=== PATIENT | male | born 1975 | race American Indian/Alaskan Native ===

== ENCOUNTER 2021-05-13 10:56 | Emergency (ER) | payer SELFPAY ==
[2021-05-13] MEDS ORDERED: NITROGLYCERIN 2% OINT 1 GM TP ONE (12:00)
[2021-05-13] MEDS ORDERED: ASPIRIN 325 MG TAB PO ONE (12:00)
[2021-05-13] MEDS ORDERED: ONDANSETRON 4 MG/2 ML INJ IV ONE (12:32)
[2021-05-13] MEDS ORDERED: fentaNYL 100 MCG/2 ML INJ IV ONE (12:32)
--- NOTE | 2021-05-13 12:37 | Emergency Department Report ---
HPI - General Chief Complaint: Chest Pain Time Seen by Provider: 05/13/21 11:58 - HPI HPI: Room 1 The patient is a 46-year-old male present with a chief complaint of chest pain. The patient states he was at work when he suddenly developed substernal chest pain feeling as though there was needles in his chest and he had pain with breathing. Patient states his chest pain has been constant and associated with shortness of breath and diaphoresis. Patient denies nausea/vomiting, fever or cough. Patient states she was not vaccinated against Covid. Patient currently gives this chest pain score 4-5/10. Patient states he is never had a stress test or cardiac catheterization ED Past Medical Hx - Past Medical History Previous Medical History?: No - Surgical History Past Surgical History?: No Additional Surgical History: Eye surgery, left shoulder - Family History Family history: no significant - Social History Smoking Status: Current Some Day Smoker Substance Use Type: None (Denies illicit drug use), Alcohol (Occasional) ED Review of Systems ROS: Stated complaint: CHEST PAIN Other details as noted in HPI Constitutional: diaphoresis. denies: fever Eyes: denies: eye pain ENT: denies: throat pain Respiratory: shortness of breath. denies: cough Cardiovascular: chest pain Endocrine: no symptoms reported Gastrointestinal: denies: nausea, vomiting Genitourinary: denies: dysuria Musculoskeletal: denies: back pain Neurological: denies: headache Physical Exam - Physical Exam Vital Signs: Vital Signs 05/13/21 05/13/21 10:30 11:10 Temperature 98.5 F Pulse Rate 61 Respiratory 16 Rate Blood Pressure 137/81 [Left] O2 Sat by Pulse 100 100 Oximetry Physical Exam: GENERAL: The patient is well-developed well-nourished male lying on stretcher not appearing to be in acute distress. [] HEENT: Normocephalic. Atraumatic. Strabismus present. Patient has moist mucous membranes. NECK: Supple. Trachea midline CHEST/LUNGS: Clear to auscultation. There is no respiratory distress noted. HEART/CARDIOVASCULAR: Regular. There is no tachycardia. There is no gallop rub or murmur. ABDOMEN: Abdomen is soft, nontender. Patient has normal bowel sounds. There is no abdominal distention. SKIN: There is no rash. There is no edema. There is no diaphoresis. NEURO: The patient is awake, alert, and oriented. The patient is cooperative. The patient has no focal neurologic deficits. The patient has normal speech. GCS 15 MUSCULOSKELETAL: There is no evidence of acute injury. ED Course Vital Signs 05/13/21 05/13/21 10:30 11:10 Temperature 98.5 F Pulse Rate 61 Respiratory 16 Rate Blood Pressure 137/81 [Left] O2 Sat by Pulse 100 100 Oximetry ED Medical Decision Making - Lab Data Result diagrams: 05/13/21 12:18 05/13/21 12:18 - EKG Data -: EKG Interpreted by Me EKG shows normal: sinus rhythm Rate: bradycardia (51 bpm) - EKG Data When compared to previous EKG there are: previous EKG unavailable Interpretation: nonspecific ST-T wave tristian - Differential Diagnosis ACS, pericarditis, GERD, PE Critical care attestation.: If time is entered above; I have spent that time in minutes in the direct care of this critically ill patient, excluding procedure time. ED Disposition Clinical Impression: Chest pain Disposition: 07 LEFT AGAINST MEDICAL ADVICE Is pt being admited?: No Does the pt Need Aspirin: No Condition: Undetermined Instructions: Nonspecific Chest Pain, Adult Referrals: PRIMARY CARE, [Primary Care Provider] - 3-5 Days Heart Score - HEART Score History: Moderately suspicious EKG: Non-specific Age: < 45 Risk factors: 1-2 risk factors Troponin: < normal limit HEART Score: 3 - EKG Read Time Time EKG Completed: 11:32 EKG Read Time: 11:44 (3)
[2021-05-13 12:38] VITALS: BP 129/76
[2021-05-13 12:48] LABS: Basophils % (Auto) 0.7 % (0.0-1.8); Eosinophils # (Auto) 0.1 K/mm3 (0.0-0.4); Eosinophils % (Auto) 3.2 % (0.0-4.3); Hematocrit 42.5 % (35.5-45.6); Hemoglobin 13.7 gm/dl (11.8-15.2); Lymphocytes # (Auto) 1.8 K/mm3 (1.2-5.4); Lymphocytes % (Auto) 43.9 % (13.4-35.0); Mean Corpuscular HGB Conc 32 % (32-34); Mean Corpuscular Volume 89 fl (84-94); Monocytes # (Auto) 0.6 K/mm3 (0.0-0.8); Monocytes % (Auto) 14.2 % (0.0-7.3); Platelet Count 224 K/mm3 (140-440); Red Blood Count 4.79 M/mm3 (3.65-5.03); Red Cell Distribution Width 13.6 % (13.2-15.2)
[2021-05-13 12:55] LABS: INR 0.98 (0.87-1.13)
[2021-05-13 12:58] LABS: Creatine Kinase MB 2.8 ng/mL (0.0-4.0)
[2021-05-13 12:59] LABS: BUN/Creatinine Ratio 17; Blood Urea Nitrogen 15 mg/dL (9-20); Hemolysis Index 19
--- NOTE | 2021-05-14 12:11 | Electrocardiograph Report ---
[facility] Test Date: 2021-05-13 Test Time: 11:32:39 Pat Name: LUIS CARLOS Department: Room: Gender: M Design Analyst: SALLIE : 1975 Requested By: KESHA HOPE Order Number: [id number] Reading MD: Mayo Mcgee Measurements Intervals [place] Rate: 51 P: -7 MA: 171 QRS: -4 QRSD: 107 T: 54 QT: 440 QTc: 405 Interpretive Statements Sinus rhythm ST elev, probable normal early repol pattern No previous ECG available for comparison Electronically Signed On 05-14-2021 12:11:41 EST by Mayo Mcgee
== END 2021-05-13 12:54 | disposition left against medical advice (07) ==
LOC: ED 10:56
DX: R07.89 Other chest pain (principal); F17.200 Nicotine dependence, unspecified, uncomplicated; Z72.89 Other problems related to lifestyle
CPT/HCPCS: 36415; 80048; 82550; 82553; 84484; 85025; 85379; 85610; 93005; 99283; 99284

== ENCOUNTER 2021-05-26 21:16 | Emergency (ER) | payer SELFPAY ==
[2021-05-26 21:21] VITALS: BP 126/63
[2021-05-27] MEDS ORDERED: IBUPROFEN 800 MG TAB PO ONE (01:35)
--- NOTE | 2021-05-27 01:58 | Emergency Department Report ---
- General Chief Complaint: Fever Stated Complaint: BODY PAIN Time Seen by Provider: 05/27/21 01:55 Source: patient Mode of arrival: Ambulatory Limitations: No Limitations - History of Present Illness MD Complaint: cough, nasal congestion -: Sudden, days(s) (1) Severity: mild Quality: dull, aching Consistency: constant Improves With: nothing Worsens With: nothing Associated Symptoms: chills, myalgias, rhinorrhea, nasal congestion, cough, nausea, vomiting, diarrhea. denies: fever, weight loss Treatments Prior to Arrival: none - Related Data Previous Rx's Medication Instructions Recorded Last Taken Type Albuterol Mdi (or & Nicu Only) 1 puff IH Q4-6H PRN #1 inha 05/27/21 Unknown Rx [ProAir HFA Inhaler] Azithromycin [Zithromax TAB] 500 mg PO QDAY #3 tablet 05/27/21 Unknown Rx Benzonatate [Tessalon Perles] 100 mg PO Q8HR #20 capsule 05/27/21 Unknown Rx Allergies Allergy/AdvReac Type Severity Reaction Status Date / Time No Known Allergies Allergy Unverified 05/13/21 10:57 ED Review of Systems ROS: Stated complaint: BODY PAIN Other details as noted in HPI Comment: All other systems reviewed and negative ED Past Medical Hx - Past Medical History Previous Medical History?: No - Surgical History Past Surgical History?: Yes Additional Surgical History: Eye surgery, left shoulder - Social History Smoking Status: Current Some Day Smoker Substance Use Type: None (Denies illicit drug use), Alcohol (Occasional) - Medications Home Medications: Home Medications Medication Instructions Recorded Confirmed Last Taken Type Albuterol Mdi (or & Nicu Only) 1 puff IH Q4-6H PRN #1 inha 05/27/21 Unknown Rx [ProAir HFA Inhaler] Azithromycin [Zithromax TAB] 500 mg PO QDAY #3 tablet 05/27/21 Unknown Rx Benzonatate [Tessalon Perles] 100 mg PO Q8HR #20 capsule 05/27/21 Unknown Rx ED Physical Exam - General Limitations: No Limitations General appearance: alert, in no apparent distress - Head Head exam: Present: atraumatic, normocephalic - Eye Eye exam: Present: normal appearance, PERRL, EOMI - ENT ENT exam: Present: mucous membranes moist - Neck Neck exam: Present: normal inspection - Respiratory Respiratory exam: Present: normal lung sounds bilaterally. Absent: respiratory distress - Cardiovascular Cardiovascular Exam: Present: regular rate, normal rhythm. Absent: systolic murmur, diastolic murmur, rubs, gallop - GI/Abdominal GI/Abdominal exam: Present: soft, normal bowel sounds - Rectal Rectal exam: Present: deferred - Extremities Exam Extremities exam: Present: normal inspection - Back Exam Back exam: Present: normal inspection - Neurological Exam Neurological exam: Present: alert, oriented X3 - Psychiatric Psychiatric exam: Present: normal affect, normal mood - Skin Skin exam: Present: warm, dry, intact, normal color. Absent: rash ED Course Vital Signs 05/26/21 21:18 Temperature 98.4 F Pulse Rate 66 Respiratory 16 Rate Blood Pressure 126/63 O2 Sat by Pulse 100 Oximetry ED Medical Decision Making - Lab Data Result diagrams: 05/27/21 02:01 05/27/21 02:01 Critical care attestation.: If time is entered above; I have spent that time in minutes in the direct care of this critically ill patient, excluding procedure time. ED Disposition Clinical Impression: Chest pain, URI (upper respiratory infection) Disposition: 01 HOME / SELF CARE / HOMELESS Is pt being admited?: No Does the pt Need Aspirin: No Condition: Stable Instructions: Nonspecific Chest Pain, Adult, Viral Respiratory Infection, Viral Respiratory Infection Test, Cough, Adult, [id number], COVID-19, COVID-19 Frequently Asked Questions, COVID-19, COVID-19: How to Protect Yourself and Others - [facility] Prescriptions: Albuterol Mdi (or & Nicu Only) [ProAir HFA Inhaler] 1 puff IH Q4-6H PRN #1 inha PRN Reason: Cough Benzonatate [Tessalon Perles] 100 mg PO Q8HR #20 capsule Azithromycin [Zithromax TAB] 500 mg PO QDAY #3 tablet Referrals: PRIMARY CARE, [Primary Care Provider] - 3-5 Days [facility] [Provider Group] - 3-5 Days
[2021-05-27 02:29] LABS: Hematocrit 42.5 % (35.5-45.6); Hemoglobin 13.8 gm/dl (11.8-15.2); Mean Corpuscular HGB Conc 33 % (32-34); Mean Corpuscular Volume 88 fl (84-94); Platelet Count 207 K/mm3 (140-440); Red Blood Count 4.85 M/mm3 (3.65-5.03); Red Cell Distribution Width 13.7 % (13.2-15.2)
[2021-05-27 02:44] LABS: Alanine Aminotransferase 16 units/L (7-56); Albumin 4.5 g/dL (3.9-5); BUN/Creatinine Ratio 11; Blood Urea Nitrogen 12 mg/dL (9-20); Calcium 9.4 mg/dL (8.4-10.2); Hemolysis Index 7
--- NOTE | 2021-05-27 03:13 | XRay Report ---
XR chest routine 2V INDICATION / CLINICAL INFORMATION: cough. COMPARISON: None available. FINDINGS: SUPPORT DEVICES: None. HEART /PULMONARY VASCULATURE: No significant abnormality. LUNGS / PLEURA: No significant pulmonary or pleural abnormality. No pneumothorax. ADDITIONAL FINDINGS: Chronic deformity of the distal right clavicle noted. IMPRESSION: 1. No acute findings. Signer Name: Chandana Garcia MD Signed: 05/27/2021 3:09 AM Workstation Name: [id number]
[2021-05-27 04:11] LABS: Band Neutrophils # (Manual) 0.1 K/mm3; Total Cells Counted 100
[2021-05-27 04:12] LABS: Platelet Estimate Consistent w Auto; RBC Morphology Normal
== END 2021-05-27 04:20 | disposition home or self-care (01) ==
LOC: ED 21:16
DX: J06.9 Acute upper respiratory infection, unspecified (principal); R07.9 Chest pain, unspecified; F17.200 Nicotine dependence, unspecified, uncomplicated
CPT/HCPCS: 36415; 71046; 80053; 83690; 85007; 85025; 99283

== ENCOUNTER 2021-10-27 10:04 | Emergency (ER) | payer SELFPAY ==
[2021-10-27 15:05] VITALS: BP 135/89
[2021-10-27] MEDS ORDERED: KETOROLAC 10 MG TAB PO ONE (15:14)
[2021-10-27] MEDS ORDERED: BENZONATATE 100 MG CAP PO ONE (15:15)
[2021-10-27] MEDS ORDERED: ACETAMINOPHEN W/CODEINE 300-30 MG TAB PO ONE (15:15)
[2021-10-27] MEDS ORDERED: dexAMETHasone 4 MG/ML VIAL IM ONE (15:15)
--- NOTE | 2021-10-27 15:20 | Emergency Department Report ---
<MATHEUSRYANPHYLICIA Lawton - Last Filed: 10/27/21 16:07> ED Headache HPI - General Chief Complaint: Headache Stated Complaint: FACIAL PAIN Time Seen by Provider: 10/27/21 14:56 - History of Present Illness Initial Comments: 46-year-old black male with no past medical history presents to the emergency department for evaluation of 2-day history of worsening facial pain. He denies injury or trauma but states that he has pain behind his eyes around his nose in his ears and it feels like pressure. He also complains of runny nose, cough, sneezing, severe headache. He denies fever and shortness of breath. He states that he has not taken any medication for his symptoms. Timing/Duration: other (2 days) Quality: severe, achy, pressure Head Injury Location: frontal Recent Head Trauma: no recent headache/trauma Associated Symptoms: facial pain, nasal congestion, nasal drainage. denies: fatigue, fever/chills, flushing, loss of consciousness, nausea/vomiting, numbness in legs/feet, rash, seizures, sinus infection, stiff neck, vision changes, weakness Allergies/Adverse Reactions: Allergies No Known Allergies Allergy (Verified 10/27/21 15:06) Home Medications: Ambulatory Orders Albuterol Mdi (or & Nicu Only) [ProAir HFA Inhaler] 1 puff IH Q4-6H PRN #1 inha 05/27/21 Azithromycin [Zithromax TAB] 500 mg PO QDAY #3 tablet 05/27/21 Benzonatate [Tessalon Perles] 100 mg PO Q8HR #20 capsule 05/27/21 Benzonatate [Tessalon Perles] 100 mg PO Q8HR #21 cap 10/27/21 Levocetirizine Dihydrochloride [Xyzal] 5 mg PO QPM #15 tab 10/27/21 methylPREDNISolone [Medrol 4MG DOSEPAK (21 tabs)] 4 mg PO DAILY #1 pack 10/27/21 ED Review of Systems Comment: All other systems reviewed and negative Constitutional: denies: chills, fever, malaise, weakness Eyes: denies: eye pain, eye discharge, vision change ENT: ear pain, throat pain, congestion. denies: dental pain Respiratory: cough. denies: orthopnea, shortness of breath, SOB with exertion, SOB at rest, stridor, wheezing Cardiovascular: denies: chest pain, palpitations Gastrointestinal: denies: abdominal pain, nausea, vomiting, diarrhea, hematemesis, melena, hematochezia Genitourinary: denies: urgency, dysuria, frequency, hematuria, discharge Musculoskeletal: denies: back pain Skin: denies: rash, lesions Neurological: headache. denies: weakness, numbness, paresthesias, confusion, abnormal gait, vertigo Psychiatric: denies: anxiety ED Past Medical Hx - Surgical History Additional Surgical History: Eye surgery, left shoulder - Social History Smoking Status: Never Smoker Substance Use Type: None - Medications Home Medications: Home Medications Medication Instructions Recorded Confirmed Last Taken Type Albuterol Mdi (or & Nicu Only) 1 puff IH Q4-6H PRN #1 inha 05/27/21 10/27/21 Unknown Rx [ProAir HFA Inhaler] Azithromycin [Zithromax TAB] 500 mg PO QDAY #3 tablet 05/27/21 10/27/21 Unknown Rx Benzonatate [Tessalon Perles] 100 mg PO Q8HR #20 capsule 05/27/21 10/27/21 Unknown Rx Benzonatate [Tessalon Perles] 100 mg PO Q8HR #21 cap 10/27/21 Unknown Rx Levocetirizine Dihydrochloride 5 mg PO QPM #15 tab 10/27/21 Unknown Rx [Xyzal] methylPREDNISolone [Medrol 4MG 4 mg PO DAILY #1 pack 10/27/21 Unknown Rx DOSEPAK (21 tabs)] ED Physical Exam - General Limitations: No Limitations General appearance: alert, in no apparent distress - Head Head exam: Present: atraumatic, normocephalic - Eye Eye exam: Present: normal appearance. Absent: conjunctival injection, periorbital swelling, periorbital tenderness - ENT ENT exam: Present: TM's normal bilaterally. Absent: normal exam (Bilateral nasal mucosal edema along with bilateral turbinate swelling and pain to both maxillary and frontal sinus areas.), normal orophraynx (Erythema noted to posterior oropharynx) - Expanded ENT Exam Expanded Mouth exam: Present: normal external inspection Throat exam: Negative: normal inspection, tonsillar erythema, tonsillomegaly, tonsillar exudate, R peritonsillar mass, L peritonsillar mass - Neck Neck exam: Present: normal inspection, full ROM. Absent: tenderness, meningismus, lymphadenopathy, thyromegaly - Respiratory Respiratory exam: Present: normal lung sounds bilaterally. Absent: respiratory distress, wheezes, rales, stridor, chest wall tenderness - Cardiovascular Cardiovascular Exam: Present: regular rate, normal heart sounds - GI/Abdominal GI/Abdominal exam: Present: soft, normal bowel sounds. Absent: distended, tenderness, guarding, rebound, rigid - Extremities Exam Extremities exam: Present: normal inspection, normal capillary refill. Absent: full ROM, pedal edema, joint swelling, calf tenderness - Back Exam Back exam: Present: normal inspection. Absent: CVA tenderness (R), CVA tenderness (L), vertebral tenderness - Neurological Exam Neurological exam: Present: alert, oriented X3, normal gait - Psychiatric Psychiatric exam: Present: normal affect, normal mood - Skin Skin exam: Present: warm, dry, intact, normal color ED Medical Decision Making - Medical Decision Making 46-year-old black male with no past medical history presents to the emergency department for evaluation of 2-day history of worsening facial pain. He denies injury or trauma but states that he has pain behind his eyes around his nose in his ears and it feels like pressure. He also complains of runny nose, cough, sneezing, severe headache. He denies fever and shortness of breath. He states that he has not taken any medication for his symptoms. Symptoms and exam consistent with sinusitis. Patient be treated in the emergency department with one-time dose of Decadron IM 8 mg, Toradol 10 mg p.o., Tessalon Perle 100 mg p.o., and Tylenol 3. He will be discharged home with Medrol Dosepak, Xyzal, and Tessalon Perles to take as directed. He is advised to follow-up with his primary care provider if no improvement or worsening symptoms. He is advised to return to the emergency department if he develops fever or any concerning symptoms. He verbalizes understanding of and agreement with plan of care. ED Disposition Clinical Impression: Sinusitis Qualifiers: Sinusitis location: frontal Chronicity: acute Recurrence: non-recurrent Qualified Code(s): J01.10 - Acute frontal sinusitis, unspecified Disposition: 01 HOME / SELF CARE / HOMELESS Is pt being admited?: No Does the pt Need Aspirin: No Condition: Stable Instructions: Sinusitis, Adult, [id number], Sinus Headache, [id number] Additional Instructions: Take medications as prescribed. Follow-up with primary care provider if no improvement or worsening symptoms. Return to the emergency department as needed. Prescriptions: methylPREDNISolone [Medrol 4MG DOSEPAK (21 tabs)] 4 mg PO DAILY #1 pack Benzonatate [Tessalon Perles] 100 mg PO Q8HR #21 cap Levocetirizine Dihydrochloride [Xyzal] 5 mg PO QPM #15 tab Referrals: PRIMARY CARE,MD [Primary Care Provider] - 3-5 Days Forms: Work/School Release Form(ED) Time of Disposition: 15:21 <ELDA BUNN - Last Filed: 10/27/21 20:49> ED Review of Systems ROS: Stated complaint: FACIAL PAIN Other details as noted in HPI ED Course Vital Signs 10/27/21 10/27/21 10:40 15:04 Temperature 98.2 F 98.9 F Pulse Rate 77 79 Respiratory 18 18 Rate Blood Pressure 121/79 135/89 [Right] O2 Sat by Pulse 100 100 Oximetry ED Medical Decision Making - Medical Decision Making I have reviewed the PA/AIR DEFENSE SPECIALIST's note and plan of care. I was available for consultation as needed at all times during the patient's visit in the emergency department but was not consulted on this case. Critical care attestation.: If time is entered above; I have spent that time in minutes in the direct care of this critically ill patient, excluding procedure time.
== END 2021-10-27 15:44 | disposition home or self-care (01) ==
LOC: ED 10:04
DX: J01.90 Acute sinusitis, unspecified (principal)
CPT/HCPCS: 96372; 99282; J1100